=== PATIENT | female | born 1995 | race Hispanic/Latino ===

== ENCOUNTER 2021-09-07 16:36 | Emergency (ER) | payer OTHER, SELFPAY | END 2021-09-07 17:57 | disposition left against medical advice (07) | LOC: CSHERS 16:36 | DX: Z53.21 Procedure and treatment not carried out due to patient leaving prior to being seen by health care provider (principal) ==

== ENCOUNTER 2022-11-07 04:22 | Emergency (ER) | payer SELFPAY | END 2022-11-07 05:08 | disposition left against medical advice (07) | LOC: CSHERS 04:22 | DX: N93.9 Abnormal uterine and vaginal bleeding, unspecified (principal); F17.210 Nicotine dependence, cigarettes, uncomplicated | CPT/HCPCS: 99284 ==